=== PATIENT | male | born 1995 | race Caucasian/White ===

== ENCOUNTER 2017-03-06 10:42 | Emergency (ER) | payer OTHER ==
[2017-03-06 10:55] VITALS: TEMP 97.9
--- NOTE | 2017-03-06 11:04 | EDPHY ---
General Narrative: CHIEF COMPLAINT: Partial thumb amputation HISTORY OF PRESENT ILLNESS: Patient presents with complaints of partial amputation of the left thumb. He was working with a drill with the drill bit got tangled with his glove. It spine and ripped the distal part of his left thumb off. This happened just prior to arrival. Significant pain. No pulsatile bleeding. No injury elsewhere in the hand or wrist. Right-hand dominant. Tetanus up-to-date. Worse with any kind of palpation and movement. Radiates into the hand. No other associated complaints or modifying factors. ESTABLISHED ORTHOPEDIST: None REVIEW OF SYSTEMS: Ten systems reviewed and are negative unless otherwise noted in the HPI PAST MEDICAL HISTORY: None PAST SURGICAL HISTORY: None SOCIAL HISTORY: Nonsmoker. Works in construction. FAMILY HISTORY: Noncontributory EXAMINATION General Appearance: Alert, no distress Cardiovascular: Pulses normal throughout. Symmetric radial pulses 2+. Brisk cap refill Neurological: A&O, light sensation to the back of the hand is symmetric to the right. Interossei strength in the left hand symmetric. Skin: Warm and dry, no rash. There is complex laceration with compound fracture of the left thumb. No pulsatile bleeding. Clean skin margins. Extremities: Partial amputation of the left thumb past the IP joint. There is partial nail bed retain. There is significant skin avulsion. Range of motion is intact. No pulsatile bleeding. Remaining fingers are unremarkable Psychiatric: Mood and affect normal DIFFERENTIAL DIAGNOSES: Including but not limited to partial amputation, compound fracture, complex laceration MDM: 11:05 a.m. Partial amputation of the left thumb with some nail bed left. This is an oblique laceration with significant exposure of the distal phalanx that remains. No suturable laceration. I have administered a digital block. I have ordered IV Dilaudid IV fluid. His tetanus is up-to-date. I will consult hand surgeon medially soon as the x-ray is available to be seen. 11:30 a.m. Case discussed with the on-call orthopedic PA, Govind. He will review the film with Dr. Poon and return my call. 11:40 a.m. Orthopedic PA return my phone call. He has discussed with Dr. Poon. Dr. Poon is currently in the OR but will come to the emergency department to evaluate the patient after the current case. 2:40 p.m. Patient re-evaluated. Still awaiting evaluation by Dr. Poon. Pain is increasing, thus I ordered Dilaudid. 3:[address] Poon is at bedside. He is performing completion of the amputation. Please see his note for further details. 3:30 p.m. Patient re-evaluated. He remains comfortable in no acute distress. He has a dressing in place. He has been treated with IV antibiotics here. We discharged home with pain medication, antibiotics. He has strict precautions per hand surgeon. He has instructions to follow up with Dr. Poon on Thursday for dressing change and re-evaluation. He also has instructions to contact his worker's compensation [facility] for further care. He is comfortable this plan and discharged home stable condition. PROCEDURE: Digital Block Indication: Finger laceration Consent: Verbal Location: Left thumb Anesthesia: Lidocaine 1% plain, 0.25% Marcaine plain, 5mL Description: Base of the finger was prepped. The above was infused without difficulty. Tolerated well. Good anesthesia. Complications: None SUPERVISION: Patient was independently examined, but I discussed the case with my secondary supervising physician Dr. Castellon ED Precautions: Worsening pain. Erythema, edema, cyanosis, pallor, paresthesia or anesthesia. - Diagnostics Imaging Results: Imaging Impressions Finger X-Ray 03/06/17 11:04 Impression: Acute traumatic amputation of the distal left thumb, with minimal absence of the distal tuft of the distal phalanx, without fracture line or significant deformity. - History Smoking Status: Former smoker - Objective Vital Signs: Initial Vital Signs Temperature (C) 97.9 F 03/06/17 10:51 Heart Rate 95 03/06/17 10:51 Respiratory Rate 18 03/06/17 10:51 Blood Pressure 138/80 H 03/06/17 10:51 O2 Sat (%) 95 03/06/17 10:51 O2 Delivery Mode Room Air Allergies/Adverse Reactions: No Known Allergies Allergy (Verified 10/13/11 17:34) Home Medications: Medication Instructions Recorded Amoxicillin/Clavulanate Pot 875 mg PO BID #20 tab 03/06/17 [Augmentin 875 MG TAB (*)] Keppra 03/06/17 oxyCODONE HCL/ACETAMINOPHEN 1 each PO Q4-6PRN PRN #19 tablet 03/06/17 [Percocet 5-325 mg Tablet] Medications Given: Discontinued Medications Hydromorphone HCl (Dilaudid) 1 mg IVP EDNOW ONE Stop: 03/06/17 11:16 Last Admin: 03/06/17 11:16 Dose: 1 mg Hydromorphone HCl (Dilaudid) 0.5 mg IVP EDNOW ONE Stop: 03/06/17 14:43 Last Admin: 03/06/17 14:54 Dose: 0.5 mg Cefazolin Sodium 1 gm/ Sodium (Chloride) 100 mls @ 400 mls/hr IV EDNOW ONE PRN Reason: Protocol Stop: 03/06/17 11:39 Last Admin: 03/06/17 11:38 Dose: 100 mls Lorazepam (Ativan Injection) 1 mg IVP EDNOW ONE Stop: 03/06/17 15:10 Last Admin: 03/06/17 15:09 Dose: 1 mg Departure - Departure Disposition: Home, Routine, Self-Care Clinical Impression: Partial traumatic transphalangeal amputation of left thumb, initial encounter Condition: Good Instructions: Finger Amputation (ED) Additional Instructions: 1. Instructions per hand surgeon 2. Pain medications as prescribed 3. Antibiotics as prescribed 4. Follow up with hand surgeon at his instructions 5. ED precautions as discussed 6. worker's compensation follow-up Referrals: Samuel Poon MD [Medical Doctor] - As per Instructions Stand Alone Forms: Work Comp Follow Up Prescriptions: Amoxicillin/Clavulanate Pot [Augmentin 875 MG TAB (*)] 875 mg PO BID #20 tab oxyCODONE HCL/ACETAMINOPHEN [Percocet 5-325 mg Tablet] 1 each PO Q4-6PRN PRN # 19 tablet PRN Reason: Pain, Breakthrough
[2017-03-06] MEDS ORDERED: HYDROmorphONE/DILAUDID 1 MG/ML INJ ONE (11:14)
[2017-03-06] MEDS ORDERED: HYDROmorphONE/DILAUDID 1 MG/ML INJ IVP ONE ×2 (11:15→14:42)
[2017-03-06] MEDS ORDERED: ceFAZolin 1 GM in NS 100 ML IV ONE (11:25)
[2017-03-06] MEDS ORDERED: CEFAZOLIN 1 GM/DEXTROSE/50 ML BAG IV ONE (11:37)
[2017-03-06 14:53] VITALS: RESP 16
[2017-03-06] MEDS ORDERED: LORazepam 2 MG/ML INJ ONE (15:08)
[2017-03-06] MEDS ORDERED: LORazepam 2 MG/ML INJ IVP ONE (15:09)
[2017-03-06 16:24] VITALS: BP 122/69; PULSE 85; O2SAT 96
[2017-03-06] MEDS ORDERED: ONDANSETRON DISINTEGRATING 4 MG TAB ONE (17:49)
[2017-03-06] MEDS ORDERED: ONDANSETRON DISINTEGRATING 4 MG TAB PO ONE (17:50)
[2017-03-06] MEDS ORDERED: ONDANSETRON 4MG PREPACK#2 BTL TAKEHOME ONE ×2 (18:32→18:35)
--- NOTE | 2017-03-07 00:01 | GCON ---
[f rep st] CONSULTATION EMERGENCY DEPARTMENT CONSULTATION AND PROCEDURE NOTE. DATE OF CONSULTATION: 03/06/2017 REASON FOR CONSULTATION: Avulsion, left thumb tip. 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 Ultimately , he was able to withdraw his hand from the glove. The tip of the his thumb was missing. He was bro ught urgently to the [facility] Emergency Department. There, they had performed a digi shivani block and provisionally cleansed his wound. I was not immediately available and was nearly 2 [address] rs before I arrived in the emergency department. Upon removing his dressing, he had exquisite tender ness. I reblocked this and then discuss findings with the patient. The patient is otherwise a healt hy gentleman with no current or past significant medical problems. Examination of his left thumb fin ds him to have an oblique avulsion which was all the way to the IP joint of the thumb on the radial b order, but the level of tissue loss was midway down the sterile matrix on the ulnar border. Distal p halanx was exposed significantly on the palmar surface, but the majority of the distal phalanx, with exception of the true tuft, was still intact. There was moderate bleeding from the wound. I restored him with a new digital block using 6 cc total of a 50/50 mixture of 2% lidocaine and 0.5% Marcaine. Once this had set up satisfactorily and he was thoroughly numb, I washed his hand with soa p and water including washing his thumb under running water. I then sterilely prepped and draped the patient's left hand. I trimmed back the distal phalanx, such that I was able to achieve soft tissue closure over it. This involved skinning back the sterile matrix slightly. I removed the tuft with a rongeur. I then defatted a portion of the radial border to allow me to approximate the skin. With the skin approximated, I then was able to sew the sterile matrix to the adipose tissue of the thumb pulp that was left. I achieved good soft tissue coverage over the exposed bone. I placed a sterile bulky nonadherent dressing over the tip of his thumb with gentle light compression. I did use a smal l finger tourniquet during the case, which I removed prior to dressing application. He was discharged from the emergency department with instructions to follow up on Thursday for dressing change. He was also given a prescription for pain medicine and oral antibiotics as much as this was an open fracture. I discussed with the patient and his mother that this is a work-related injury cl aim, and as such, he would necessarily need to at least discuss this with his employer if he has a [facility] specialist physician that he will need to see in addition to myself. /[id number]/MODL
== END 2017-03-06 19:16 | disposition home or self-care (01) ==
PROC: 3E0T3BZ Introduction of Anesthetic Agent into Peripheral Nerves and Plexi, Percutaneous Approach (ICD-10-PCS; principal; 2017-03-06)
DX: S68.522A Partial traumatic transphalangeal amputation of left thumb, initial encounter (principal); Z87.891 Personal history of nicotine dependence; W31.1XXA Contact with metalworking machines, initial encounter; Y92.69 Other specified industrial and construction area as the place of occurrence of the external cause; Y99.0 Civilian activity done for income or pay; Y93.89 Activity, other specified
CPT/HCPCS: 96374; J0690; J1170; J2060